=== PATIENT | male | born 1970 | race American Indian/Alaskan Native ===

== ENCOUNTER 2021-05-28 13:05 | Emergency (ER) | payer SELFPAY ==
[2021-05-28] MEDS ORDERED: TETANUS,DIPH,PERTUSS(ACELL) VACCINE 0.5 ML SYRINGE IM ONE (13:36)
--- NOTE | 2021-05-28 13:38 | Emergency Department Report ---
ED General Adult HPI - General Chief complaint: Wound/Laceration Stated complaint: LEFT FOOT LACERATION Time Seen by Provider: 05/28/21 13:16 Source: patient Mode of arrival: Ambulatory Limitations: Language Barrier - History of Present Illness Initial comments: Patient presents with complaints of laceration to left medial ankle today. He states he cut it on a stick while outside. He is unsure of his last tetanus vaccination. He denies any difficulty moving his foot/ankle or numbness or tingling to the foot or ankle. Past medical history includes hypertension. Patient is also requesting a refill of his blood pressure medication. He states he has been out of it for 1 month and denies any neuro symptoms, chest pain, or shortness of breath. - Related Data Previous Rx's Medication Instructions Recorded Last Taken Type Aspirin EC [Halfprin EC] 81 mg PO DAILY #30 tablet 09/27/18 Unknown Rx Atorvastatin Calcium [Lipitor] 20 mg PO DAILY #30 tablet 09/27/18 Unknown Rx amLODIPine 10 mg PO DAILY #30 tablet 09/27/18 Unknown Rx hydroCHLOROthiazide [HCTZ] 25 mg PO QDAY #30 tablet 09/27/18 Unknown Rx Candesartan/Hydrochlorothiazid 1 each PO QDAY #30 tablet 05/28/21 Unknown Rx [Atacand Hct 32-12.5 mg] Ibuprofen [Motrin 800 MG tab] 800 mg PO Q8HR PRN #20 tablet 05/28/21 Unknown Rx cephALEXin [Keflex] 500 mg PO Q8HR 7 Days #21 cap 05/28/21 Unknown Rx Allergies Allergy/AdvReac Type Severity Reaction Status Date / Time No Known Allergies Allergy Verified 05/28/21 13:12 ED Review of Systems ROS: Stated complaint: LEFT FOOT LACERATION Other details as noted in HPI Constitutional: denies: malaise Respiratory: denies: shortness of breath Cardiovascular: denies: chest pain Musculoskeletal: denies: joint swelling, arthralgia Skin: as per HPI. denies: change in color Neurological: denies: headache, numbness, paresthesias ED Past Medical Hx - Past Medical History Hx Hypertension: Yes - Social History Smoking Status: Never Smoker - Medications Home Medications: Home Medications Medication Instructions Recorded Confirmed Last Taken Type Aspirin EC [Halfprin EC] 81 mg PO DAILY #30 tablet 09/27/18 Unknown Rx Atorvastatin Calcium [Lipitor] 20 mg PO DAILY #30 tablet 09/27/18 Unknown Rx amLODIPine 10 mg PO DAILY #30 tablet 09/27/18 Unknown Rx hydroCHLOROthiazide [HCTZ] 25 mg PO QDAY #30 tablet 09/27/18 Unknown Rx Candesartan/Hydrochlorothiazid 1 each PO QDAY #30 tablet 05/28/21 Unknown Rx [Atacand Hct 32-12.5 mg] Ibuprofen [Motrin 800 MG tab] 800 mg PO Q8HR PRN #20 tablet 05/28/21 Unknown Rx cephALEXin [Keflex] 500 mg PO Q8HR 7 Days #21 cap 05/28/21 Unknown Rx ED Physical Exam - General Limitations: Language Barrier General appearance: alert, in no apparent distress - Head Head exam: Present: atraumatic, normocephalic - Eye Eye exam: Present: normal appearance. Absent: scleral icterus - Respiratory Respiratory exam: Absent: respiratory distress - Cardiovascular Cardiovascular Exam: Present: regular rate, normal rhythm - Extremities Exam Extremities exam: Present: other (8 cm laceration noted to left medial ankle; leaf foreign bodies noted; patient has full range of motion of the ankle and normal perfusion of the foot) - Neurological Exam Neurological exam: Present: alert, oriented X3 - Psychiatric Psychiatric exam: Present: normal affect, normal mood - Skin Skin exam: Present: warm, dry, normal color. Absent: rash ED Course Vital Signs 05/28/21 05/28/21 13:12 15:24 Temperature 97.9 F 98.2 F Pulse Rate 91 H 78 Respiratory 18 18 Rate Blood Pressure 194/101 Blood Pressure 186/99 [Left] O2 Sat by Pulse 96 99 Oximetry - Laceration /Wound Repair Ankle Wound Length (cm): 8 Wound's Depth, Shape: flap Wound Explored: foreign body removed (Small leaf particles removed) Irrigated w/ Saline (ccs): 500 (Aggressive irrigation performed) Betadine Prep?: Yes Anesthesia: 1% Lidocaine Volume Anesthetic (ccs): 10 Suture Size/Type: 3:0 (Ethilon) Number of Sutures: 16 (Simple interrupted) Sterile Dressing Applied?: Yes Progress: Mild bleeding occurred. Patient tolerated procedure well without any immediate complications. He has full range of motion and normal perfusion of the ankle and foot post procedure ED Medical Decision Making - Medical Decision Making Patient presents with complaints of laceration to left medial ankle today. He states he cut it on a stick while outside. He is unsure of his last tetanus vaccination. He denies any difficulty moving his foot/ankle or numbness or tingling to the foot or ankle. Past medical history includes hypertension. Patient is also requesting a refill of his blood pressure medication. He states he has been out of it for 1 month and denies any neuro symptoms, chest pain, or shortness of breath. Laceration repair performed. Wound was thoroughly and aggressively irrigated. No foreign bodies noted post irrigation. Patient tolerated procedure well without any immediate complications. Patient to return to ED in 14 days for suture removal. Keflex given for infection prophylaxis. Discussed wound care and signs and symptoms that should prompt immediate return to the ED in detail patient verbalizes understanding. Blood pressure medication refill also given. Patient states he does have a primary care doctor and will [facility] Critical care attestation.: If time is entered above; I have spent that time in minutes in the direct care of this critically ill patient, excluding procedure time. ED Disposition Clinical Impression: Laceration of left ankle, Medication refill Disposition: HOME / SELF CARE / HOMELESS Is pt being admited?: No Condition: Stable Instructions: Laceration Care, Adult Additional Instructions: por favor regrese al departamento de emergencias en 14 tolliver para remover la sutura Prescriptions: Candesartan/Hydrochlorothiazid [Atacand Hct 32-12.5 mg] 1 each PO QDAY #30 tablet cephALEXin [Keflex] 500 mg PO Q8HR 7 Days #21 cap Ibuprofen [Motrin 800 MG tab] 800 mg PO Q8HR PRN #20 tablet PRN Reason: pain Referrals: PRIMARY CARE, [Primary Care Provider] - 3-5 Days Forms: Work/School Release Form(ED)
[2021-05-28] MEDS ORDERED: SODIUM CHLORIDE 0.9% IRR 500 ML BOTTLE IR ONE (14:11)
[2021-05-28 15:27] VITALS: BP 186/99
== END 2021-05-28 15:28 | disposition home or self-care (01) ==
LOC: ED 13:05
DX: S91.022A Laceration with foreign body, left ankle, initial encounter (principal); I10 Essential (primary) hypertension; Z76.0 Encounter for issue of repeat prescription; Z79.82 Long term (current) use of aspirin; Z79.899 Other long term (current) drug therapy; W26.8XXA Contact with other sharp object(s), not elsewhere classified, initial encounter; Y93.89 Activity, other specified; Y92.89 Other specified places as the place of occurrence of the external cause; Y99.8 Other external cause status
CPT/HCPCS: 90471; 90715; 99282

== ENCOUNTER 2021-06-11 13:21 | Emergency (ER) | payer SELFPAY ==
[2021-06-11 13:28] VITALS: BP 183/102
--- NOTE | 2021-06-11 14:31 | Emergency Department Report ---
ED General Adult HPI - General Chief complaint: Laceration/Recheck/Suture Stated complaint: SUTURE REMOVAL Time Seen by Provider: 06/11/21 13:30 Source: patient Mode of arrival: Ambulatory Limitations: Language Barrier - History of Present Illness Initial comments: 51-year-old male patient presents for suture removal today. Patient has sutures placed in the left medial ankle here in the ED on 05/28/2021. Patient states he completed all antibiotics prescribed. He denies any pain or swelling or increased redness. Patient states he is feeling well. Patient denies difficulty moving the ankle - Related Data Previous Rx's Medication Instructions Recorded Last Taken Type Aspirin EC [Halfprin EC] 81 mg PO DAILY #30 tablet 09/27/18 Unknown Rx Atorvastatin Calcium [Lipitor] 20 mg PO DAILY #30 tablet 09/27/18 Unknown Rx amLODIPine 10 mg PO DAILY #30 tablet 09/27/18 Unknown Rx hydroCHLOROthiazide [HCTZ] 25 mg PO QDAY #30 tablet 09/27/18 Unknown Rx Candesartan/Hydrochlorothiazid 1 each PO QDAY #30 tablet 05/28/21 Unknown Rx [Atacand Hct 32-12.5 mg] Ibuprofen [Motrin 800 MG tab] 800 mg PO Q8HR PRN #20 tablet 05/28/21 Unknown Rx cephALEXin [Keflex] 500 mg PO Q8HR 7 Days #21 cap 05/28/21 Unknown Rx Doxycycline Monohydrate 100 mg PO BID 10 Days #20 capsule 06/11/21 Unknown Rx [Doxycycline Monohydrate CAP] Mupirocin [Bactroban 2% OINT] 1 applic TP TID 10 Days #1 tube 06/11/21 Unknown Rx hydroCHLOROthiazide 12.5 mg PO QDAY 30 Days #30 capsule 06/11/21 Unknown Rx [Hydrochlorothiazide] Allergies Allergy/AdvReac Type Severity Reaction Status Date / Time No Known Allergies Allergy Verified 06/11/21 13:25 ED Review of Systems ROS: Stated complaint: SUTURE REMOVAL Other details as noted in HPI Constitutional: denies: chills, diaphoresis, fever, malaise, weakness Musculoskeletal: denies: joint swelling, arthralgia Skin: denies: change in color ED Past Medical Hx - Past Medical History Hx Hypertension: Yes - Social History Smoking Status: Never Smoker - Medications Home Medications: Home Medications Medication Instructions Recorded Confirmed Last Taken Type Aspirin EC [Halfprin EC] 81 mg PO DAILY #30 tablet 09/27/18 Unknown Rx Atorvastatin Calcium [Lipitor] 20 mg PO DAILY #30 tablet 09/27/18 Unknown Rx amLODIPine 10 mg PO DAILY #30 tablet 09/27/18 Unknown Rx hydroCHLOROthiazide [HCTZ] 25 mg PO QDAY #30 tablet 09/27/18 Unknown Rx Candesartan/Hydrochlorothiazid 1 each PO QDAY #30 tablet 05/28/21 Unknown Rx [Atacand Hct 32-12.5 mg] Ibuprofen [Motrin 800 MG tab] 800 mg PO Q8HR PRN #20 tablet 05/28/21 Unknown Rx cephALEXin [Keflex] 500 mg PO Q8HR 7 Days #21 cap 05/28/21 Unknown Rx Doxycycline Monohydrate 100 mg PO BID 10 Days #20 capsule 06/11/21 Unknown Rx [Doxycycline Monohydrate CAP] Mupirocin [Bactroban 2% OINT] 1 applic TP TID 10 Days #1 tube 06/11/21 Unknown Rx hydroCHLOROthiazide 12.5 mg PO QDAY 30 Days #30 capsule 06/11/21 Unknown Rx [Hydrochlorothiazide] ED Physical Exam - General Limitations: Language Barrier General appearance: alert, in no apparent distress - Head Head exam: Present: atraumatic, normocephalic - Eye Eye exam: Present: normal appearance. Absent: scleral icterus - Cardiovascular Cardiovascular Exam: Present: regular rate, normal rhythm - Neurological Exam Neurological exam: Present: alert, oriented X3 - Psychiatric Psychiatric exam: Present: normal affect, normal mood - Skin Skin exam: Present: warm, dry, normal color, other (Healing laceration noted to left medial ankle with obvious purulent discharge in small amount of wound dehiscence noted to the lateral portion of the wound; patient has full range of motion of the ankle and denies tenderness to palpation; no cellulitic changes noted). Absent: rash ED Course Vital Signs 06/11/21 13:26 Temperature 98.0 F Pulse Rate 84 Respiratory 18 Rate Blood Pressure 183/102 O2 Sat by Pulse 98 Oximetry ED Medical Decision Making - Radiology Data Radiology results: report reviewed LEFT ANKLE 3 VIEWS INDICATION / CLINICAL INFORMATION: Lateral wound infection. COMPARISON: None available. FINDINGS: BONES / JOINT(S): There is no evidence of fracture, subluxation or destructive lesion. No significant arthritis. SOFT TISSUES: There is mild soft tissue swelling more prominent medially. There is no evidence of soft tissue gas or radiopaque foreign body. ADDITIONAL FINDINGS: None. - Medical Decision Making 51-year-old male patient presents for suture removal today. Patient has sutures placed in the left medial ankle here in the ED on 05/28/2021. Patient states he completed all antibiotics prescribed. He denies any pain or swelling or increased redness. Patient states he is feeling well. X-rays negative for any acute bony abnormalities, osteomyelitis, or foreign bodies. No gas noted. Sutures removed. Some purulent drainage pushed from wound. Wound irrigated with saline and Betadine. Sterile dressing placed over wound. There is some wound dehiscence noted. Patient is afebrile nontachycardic. He continues to deny any pain and has full range of motion, sensation, and normal perfusion of the foot and ankle on exam. Patient given Rocephin IM. He is stable for discharge home on doxycycline and mupirocin. Discussed in great detail importance of keeping wound clean and dry, wound care, compliance with antibiotics, and signs and symptoms that should prompt immediate return to the emergency department, patient verbalizes understanding. He is to return to the ED in 3 to 4 days for wound recheck. Critical care attestation.: If time is entered above; I have spent that time in minutes in the direct care of this critically ill patient, excluding procedure time. ED Disposition Clinical Impression: Infected wound Disposition: 01 HOME / SELF CARE / HOMELESS Is pt being admited?: No Condition: Stable Instructions: Wound Infection, Wound Dehiscence Additional Instructions: Return to the emergency department in 5 days for wound recheck Prescriptions: Mupirocin [Bactroban 2% OINT] 1 applic TP TID 10 Days #1 tube Doxycycline Monohydrate [Doxycycline Monohydrate CAP] 100 mg PO BID 10 Days #20 capsule hydroCHLOROthiazide [Hydrochlorothiazide] 12.5 mg PO QDAY 30 Days #30 capsule Referrals: PRIMARY CARE, [Primary Care Provider] - 3-5 Days Print Language: ARABIC
--- NOTE | 2021-06-11 14:59 | XRay Report ---
LEFT ANKLE 3 VIEWS INDICATION / CLINICAL INFORMATION: Lateral wound infection. COMPARISON: None available. FINDINGS: BONES / JOINT(S): There is no evidence of fracture, subluxation or destructive lesion. No significant arthritis. SOFT TISSUES: There is mild soft tissue swelling more prominent medially. There is no evidence of sof t tissue gas or radiopaque foreign body. ADDITIONAL FINDINGS: None. Signer Name: Moises Ruiz MD Signed: 06/11/2021 2:54 PM Workstation Name: [id number]
[2021-06-11] MEDS ORDERED: LIDOCAINE-MPF (1%) 10 MG/1 ML VIAL 5 ML INFILTRATI ONE (16:36)
== END 2021-06-12 03:56 | disposition home or self-care (01) ==
LOC: ED 13:21
DX: T81.49XA Infection following a procedure, other surgical site, initial encounter (principal); X58.XXXA Exposure to other specified factors, initial encounter; I10 Essential (primary) hypertension; Y93.89 Activity, other specified; Y92.89 Other specified places as the place of occurrence of the external cause; Y99.8 Other external cause status
CPT/HCPCS: 73610; 96372; 99283; J0696